=== PATIENT | male | born 1930 | race Caucasian/White ===

== ENCOUNTER 2016-09-18 12:45 | Emergency (ER) | payer OTHER ==
[~2016-09-18] VITALS: Ht 177.8 cm; Wt 76.2 kg
[~2016-09-18 12:45] MED LIST: AMLODIPINE BESYL5 M1 PO; ASPIRIN EC81 M1 PO; FOLIC ACID1 M1 PO; LIPITOR40 M1 PO; MULTI-DAY VITA1 EACH PO; NEURONTIN100 M1 PO; PRANDIN1 M1 PO; TOPROL XL25 M1 PO
--- NOTE | 2016-09-18 13:10 | ED GENERAL ADULT ---
History of Present Illness General Chief Complaint: General Adult Stated Complaint: PT SIB DR PEGUERO, VOMITING, HIGH BL SUGAR, Source: patient Exam Limitations: no limitations Vital Signs & Intake/Output Vital Signs & Intake/Output Vital Signs Date Time Temp Pulse Resp B/P Pulse O2 O2 Flow FiO2 Ox Delivery Rate 09/19 1349 82 16 165/74 94 Room Air 09/19 1136 98.0 87 16 153/71 94 Room Air 09/19 1040 Room Air 09/19 0930 98.1 90 20 128/60 /18 0916 98.1 90 20 128/60 96 Room Air 09/19 0715 98.0 88 20 128/61 96 Room Air 09/18 2303 97.9 88 20 153/67 / 2303 97.9 88 20 153/67 / 2303 97.9 105 18 165/76 94 Room Air 09/18 1813 97.9 88 20 153/67 95 Room Air 09/18 1532 97.2 85 18 149/68 95 Room Air 09/18 1453 98 Room Air ED Intake and Output 09/19 0000 09/18 1200 Intake Total 1000 Output Total Balance 1000 Intake, IV 1000 Patient 168 lb Weight Allergies Coded Allergies: atenolol (UNKNOWN 10/11/15) carrot (UNKNOWN 10/11/15) celery (UNKNOWN 10/11/15) niacin (UNKNOWN 10/11/15) oxycodone (UNKNOWN 10/11/15) Uncoded Allergies: COLOR ADDITIVE (UNKNOWN REACTION TO DYE 10/15/15) Triage Note: 85 Y/O MALE C/O N/V THIS AM AROUND 1100. PT STATES HE HAS BEEN HAVING R HIP PAIN X 2 WEEKS; HAD AN MRI AND WAS DUE TO GO FOR RESULTS TODAY. STATES HE TOOK TYLENOL WITH CODEINE THIS AM AND THEN BEGAN VOMITING SHORTLY AFTER. PT STATES HIS ABDOMEN HURT THIS AM BUT "FEELS BETTER" SINCE VOMITING. PT STATES HIS BLOOD SUGAR WAS 247 THIS AM. AFEBRILE. Triage Nurses Notes Reviewed? yes Onset: Gradual Duration: hour(s): (4) Timing: remote history Injury Environment: home Severity: moderate Severity Numbers: 6 No Modifying Factors: none HPI: Patient is an 85-year-old male with history of nausea, vomiting, elevated blood glucose level since this morning. Patient also reporting generalized abdominal discomfort. He reports that he vomited 2 or 3 times, he reports that it is bilious. No blood. Denies any fevers or chills. He reports that he feels improved at this time but his stomach feels "queasy". Denies any lower extremity edema. No chest pain palpitations or shortness of breath. Denies taking anything at home to help her symptoms. Per patient has been constipated over the last several days and she had to manual disimpact him this morning. He reports that helped and he was able to move his bowels. (OLIVIER JEFFERSON) Reconcile Medications Amlodipine Besylate 5 MG TABLET 1 TAB PO DAILY BP (Reported) Aspirin (Ecotrin*) 81 MG TABLET.DR 1 TAB PO DAILY HEART HEALTH (Reported) Atorvastatin Calcium (Lipitor) 40 MG TABLET 1 TAB PO DAILY CHOLESTEROL ( Reported) Cyanocobalamin (Vitamin B-12) 1,000 MCG TABLET 1 TAB PO DAILY HEALTH SUPPLEMENT (Reported) Folic Acid 1 MG TABLET 1 TAB PO DAILY SUPPLEMENT (Reported) Gabapentin (Neurontin) 100 MG CAPSULE 2 CAP PO DAILY NERVE PAIN (Reported) Hydrochlorothiazide 25 MG TABLET 1 TAB PO DAILY HIGH BLOOD PRESSURE (Reported ) Hyoscyamine (Levsin) 0.125 MG TABLET 1 TAB PO Q4 PRN ABDOMINAL SPASMS Metoprolol Succ XL (Toprol XL) 25 MG TAB 1 TAB PO DAILY BP (Reported) Multivitamin (Multi-Day Vitamins) 1 EACH TABLET 1 TAB PO DAILY SUPPLEMENT ( Reported) Ondansetron (Zofran Odt) 4 MG TAB.RAPDIS 1 TAB SL TID PRN NAUSEA Repaglinide (Prandin) 1 MG TABLET 1 TAB PO TID DIABETES (Reported) Tamsulosin HCl (Flomax) 0.4 MG CAP.ER.24H 1 CAP PO DAILY HEALTH SUPPLEMENT ( Reported) (MICHAEL ORTZE,CHAD) Past History Travel History Traveled to [place] past 21 day No Medical History Any Pertinent Medical History? see below for history Neurological: NONE EENT: NONE Cardiovascular: CAD Respiratory: NONE Gastrointestinal: NONE Hepatic: NONE Renal: PROSTATE Musculoskeletal: NONE Psychiatric: NONE Endocrine: diabetes Blood Disorders: NONE Cancer(s): NONE HOGSHEAD HAND/Reproductive: NONE Surgical History Surgical History: cholecystectomy, aortic valve replacement Psychosocial History Who do you live with Spouse What is your primary language Divehi Tobacco Use: Quit >30 days ago Family History Hx Contributory? No (OLIVIER JEFFERSON) Review of Systems Review of Systems Constitutional: Reports: malaise. Comments Review of systems: See HPI, All other systems negative. Constitutional, no chills fever or weight loss HEENT: No visual changes no sore throat no congestion Cardiovascular: No chest pain ,palpitation , orthopnea or ankle swelling Skin, no jaundice no rashes Respiratory: No dyspnea cough sputum or hemoptysis GI: No diarrhea : No dysuria No hematuria Muscle skeletal: no back pain, no neck pain, Neurologic: No numbness no confusion, no headaches Psych: No stress anxiety or depression,. Heme/endocrine: No bruising no bleeding no polyuria or polydipsia Immunology: No splenectomy or history of AIDS (OLIVIER JEFFERSON) Physical Exam Physical Exam General Appearance: well developed/nourished, no apparent distress, alert, awake , comfortable Comments: Well-developed well-nourished person in no acute distress HEENT: Pupils equally round and reactive to light and accommodation. Nose is atraumatic. External auditory canal and Tympanic membranes clear. Pharynx normal. No swelling or edema. Dry oral mucosa. Neck: Supple, no lymphadenopathy, normal range of motion without pain or tenderness Back: Nontender, no CVA tenderness. Cardiovascular: Regular rate and rhythms no murmurs rubs or gallops, normal JVP Respiratory: Chest nontender. No respiratory distress.breath sounds clear to auscultation bilaterally Abdomen: Soft, slightly distended, tenderness to palpation in the periumbilical region, no appreciable organomegaly. Normal bowel sounds. No ascites Extremity: No edema, no calf tenderness to palpation, normal and equal pulses. Neuro: Alert oriented x3, motor sensory normal Skin: No appreciable rash on exposed skin, skin is warm and dry. Psych: Mood and affect is normal, memory and judgment is normal. Core Measures ACS in differential dx? Yes CVA/TIA Diagnosis: No Severe Sepsis Present: No Septic Shock Present: No (OLIVIER JEFFERSON) Progress Differential Diagnoses I considered the following diagnoses in my evaluation of the patient: Dehydration, electrolyte abnormality, DKA, hyperglycemia, gastritis, constipation, SBO Plan of Care: Orders Procedure Date/time Status FingerStick- Glucose 09/19 1020 Active CBC WITHOUT DIFFERENTIAL 09/19 0813 Complete Theraputic Activities 15 Min 09/19 UNK Complete MOBILITY D/C STATUS 09/19 UNK Complete MOBILITY GOAL STATUS 09/19 UNK Complete MOBILITY CURRENT STATUS 09/19 UNK Complete PT EVAL LOW COMPLEX 20 MIN 09/19 UNK Complete Heart Healthy Diet 09/18 D Active PT Evaluate & Treat 09/18 2012 Active CASE MANAGEMENT CONSULT 09/18 2012 Active Add-on Test (ER Only) 09/18 1702 Active EKG 09/18 1532 Active TROPONIN LEVEL 09/18 1428 Complete Current Medications Sig/Rakesh Start time Last Medication Dose Stop Time Status Admin Non-Formulary 0 ONCE ONE 09/18 2029 CAN Medication 09/18 2030 (NON FORMULARY) Laboratory Tests 09/19/16 0821: CBC w Diff NO MAN DIFF REQ, RBC 3.77 L, MCV 95.5 H, MCH 32.5 H, RDW 12.5, MPV 9.9, Gran % 77.5 H, Lymphocytes % 12.1 L, Monocytes % 9.4 H, Eosinophils % 0.8, Basophils % 0.2, Absolute Granulocytes 7.8 H, Absolute Lymphocytes 1.2, Absolute Monocytes 0.9 H, Absolute Eosinophils 0.1, Absolute Basophils 0, PUBS MCHC 34.0 09/18/16 1525: Urine Color YEL, Urine Clarity CLEAR, Urine pH 6.0, Ur Specific P[place]ar 1.015, Urine Protein TRACE H, Urine Ketones NEG, Urine Nitrite NEG, Urine Bilirubin NEG, Urine Urobilinogen 0.2, Ur Leukocyte Esterase NEG, Ur Microscopic SEDIMENT EXAMINED, Urine RBC RARE, Urine WBC RARE, Ur Epithelial Cells FEW, Hyaline Casts RARE H, Urine Hemoglobin NEG, Urine Glucose 100 H Microbiology 09/18 1710 NASOPHARYN: Influenza Virus A & B Rapid Smear - CAN Cancelled: Cancelled via OE: Error Diagnostic Imaging: Viewed by Me: Radiology Read, CT Scan. Discussed w/RAD: Radiology Read, CT Scan. Radiology Impression: PATIENT: MERVIN SANCHEZ PRESENT AGE: 85 PATIENT ACCOUNT NO: [id number] : 29 LOCATION: [facility] ORDERING PHYSICIAN: OLIVIER RAGSDALE SERVICE DATE: 09/18/16-1324 EXAM TYPE: RAD - [id number] VIEWS EXAMINATION: XR ABDOMEN MULTIPLE VIEWS CLINICAL INDICATION: Nausea and vomiting. Constipation. COMPARISON: CT abdomen pelvis . TECHNIQUE: Upright and supine abdomen. FINDINGS: Nonobstructive bowel pattern. No dilated bowel loops. Moderate to large volume of stool throughout the colon. The volume of stool similar to the CAT scan exam of 07/31/2016. No radiopaque urinary calculi. Calculi seen in the right kidney on the CAT scan of 07/31/2016 is not apparent on plain film but there is stool in the colon obscuring the renal region. Orthopedic fusion hardware L4-L5. Multilevel degenerative spondylosis of the spine. Degenerative joint narrowing of the hip joints bilateral. IMPRESSION: No acute change of the abdomen. Moderate to large- volume of stool though throughout the colon with a nonobstructive bowel pattern, PATIENT: MERVIN SANCHEZ PRESENT AGE: 85 PATIENT ACCOUNT NO: [id number] : 29 LOCATION: [facility] ORDERING PHYSICIAN: OLIVIER RAGSDALE SERVICE DATE: 09/18/16 EXAM TYPE: CAT - CT ABD & PELVIS W/O IV CONTRAS EXAMINATION: CT ABDOMEN AND PELVIS WITHOUT CONTRAST CLINICAL INFORMATION: Abdominal pain. Nausea and vomiting. COMPARISON: CT scan abdomen and pelvis 07/31/2016. TECHNIQUE: Multidetector volumetric imaging was performed from the superior aspect of the liver through the pubic symphysis. Sagittal and coronal reformatted images were obtained on the technologist's workstation. DLP: 389.81 mGy-cm FINDINGS: LUNG BASES: Status post median sternotomy. There is calcification of the coronary arteries. There is aortic valve replacement. Mitral valve annular calcifications present. Lung bases are clear. Right diaphragm elevated above the left. LIVER, GALLBLADDER, AND BILIARY TREE: There is pneumobilia. Gallbladder is absent. This is unchanged since prior study. No focal liver lesion. PANCREAS: Unremarkable. SPLEEN: Unremarkable. ADRENAL GLANDS : Unremarkable. KIDNEYS AND URETERS: Left kidney inferiorly positioned. There are nonobstructive stones in the right kidney. Near the pole there are 2 adjacent stones. These measure approximately 5 mm and 3 mm. There is a 4 x 3 mm stone in the midpole. No stone in the left kidney. There is no ureteral calculus. There is no hydronephrosis. BLADDER: Unremarkable. GASTROINTESTINAL TRACT: There is marked diverticulosis of the sigmoid and descending colon with scattered diverticula in the right colon. No diverticulitis. No bowel wall thickening or edema. Moderate to large volume of stool in the colon. No bowel obstruction. The appendix is normal. The small bowel loops are unremarkable. ABDOMINAL WALL: Large left-sided fat-containing inguinal hernia measuring 7.8 cm transverse by 4.5 cm AP. There is a small right fat-containing inguinal hernia measuring 2.6 x 1.9 cm. LYMPH NODES: Normal. VASCULAR: Atherosclerotic vascular wall calcifications of aorta and iliac arteries. No aneurysm. PELVIC VISCERA: Prostate measures 4.6 cm transverse. OSSEOUS STRUCTURES: Transpedicular screws L4-L5. Vacuum disc phenomena L5-S1. Degenerative lipping at the anterior endplates of thoracic and lumbar vertebrae. IMPRESSION: 1. No acute abnormality CT scan abdomen and pelvis. 2. Diverticulosis of colon without diverticulitis. No acute change of bowel. 3. Pneumobilia. Status post cholecystectomy. 4. No change in nonobstructive right renal calculi. No hydronephrosis. 5. Bilateral fat-containing inguinal hernias, large on the left. Initial ED EKG: NORMAL SINUS RHYTHM AT 90 BPM, PAC Prior EKG: unchanged Hand-Off Endorsed To: LEONOR ORTEZ,BHARTI Hamm Endorsed Time: 2299 Pending: other Comments: 09/18/2016 2:12:28 PM on arrival patient no acute distress, vitals within normal range. Patient does every evertors small bowel pain on exam with nausea and vomiting no diarrhea. Recent history of constipation. Need to exclude SBO. Patient hydrated with fluids as he has a dry oral mucosa. Patient reports that he is not nauseous at this time. Does not want anything for pain at this time. 09/18/2016 5:49:17 PM patient really improved after IV hydration. Patient eating toast and Jell-O without difficulty. No nausea or vomiting. There are informed of all lab work results and imaging study results. Likely constipation. Also likely viral syndrome. Still pending troponin. EKG shows no acute changes. 09/18/2016 6:11:56 PM ambulate patient, having difficulty with ambulation secondary to hip pain has been going on for the past several weeks. Patient will be a holdover in the emergency department for physical therapy evaluation in the morning. Family aware of this and compliant. Patient may need rehabilitation. Case management involved. 09/18/2016 10:53:30 PM patient will be signed out to Dr. Jolly pending consultation with physical therapy in the morning. Patient placed in hospital bed. Given nighttime medications already. (OLIVIER JEFFERSON) Hand-Off Endorsed To: LEONA DIAZ MD Endorsed Time: 0700 Pending: other (CASE MANAGEMENT/PT CONSULT) (LEONOR ORTEZ,BHARTI Hamm) Differential Diagnoses I considered the following diagnoses in my evaluation of the patient: Comments: 09/19/16 10:15am pt case d/w dr yanez who reviewed pt mri: mild arthritis, troch bursitis. hx of gen spine disease per dr yanez. Pt transferred to rehabilitation facility. 09/19/2016 2:47:30 PM I have updated Mervin's . (LEONA DIAZ MD) Departure Departure Condition: Stable Clinical Impression Primary Impression: Nausea and vomiting Qualifiers: Vomiting type: unspecified Vomiting Intractability: non-intractable Qualified Code: R11.2 - Nausea with vomiting, unspecified Secondary Impressions: Abdominal pain Qualifiers: Abdominal location: periumbilical Qualified Code: R10.33 - Periumbilical pain Referrals: DRAGAN PEGUERO MD (PCP/Family) Additional Instructions: Follow-up with your primary care physician call to make an appointment. Increase fluids. Take Zofran as prescribed for nausea. Return for worsening symptoms or concerns. Use ozzb-dlt-rodycdt stool softeners to help with constipation. Prescription for Zofran and Levsin to help with nausea and abdominal discomfort were sent to [facility]. YOU can pick them up tomorrow. Departure Forms: Customer Survey General Discharge Information Prescriptions: Current Visit Scripts Ondansetron (Zofran Odt) 1 TAB SL TID PRN NAUSEA #10 TAB Hyoscyamine (Levsin) 1 TAB PO Q4 PRN ABDOMINAL SPASMS #10 TAB (OLIVIER JEFFERSON) PA/ESL INSTRUCTOR Co-Sign Statement Statement: ED Attending supervision documentation- [X] I saw and evaluated the patient. I have also reviewed all the pertinent lab results and diagnostic results. I agree with the findings and the plan of care as documented in the PA's/ESL INSTRUCTOR's documentation. [X] I have reviewed the ED Record and agree with the PA's/ESL INSTRUCTOR's documentation. [] Additions or exceptions (if any) to the PAs/ESL INSTRUCTOR's note and plan are summarized below: [] (MICHAEL MD,CHAD) Departure Disposition: ACUTE REHAB FACILITY (LEONA DIAZ MD) Critical Care Note Critical Care Note Critical Care Time: non-applicable (OLIVIER JEFFERSON) Critical Care Note Critical Care Time: 30-74 min (LEONA DIAZ MD) Statement: ED Attending supervision documentation- [X] I saw and evaluated the patient. I have also reviewed all the pertinent lab results and diagnostic results. I agree with the findings and the plan of care as documented in the PA's/ESL INSTRUCTOR's documentation. [X] I have reviewed the ED Record and agree with the PA's/ESL INSTRUCTOR's documentation. [] Additions or exceptions (if any) to the PAs/ESL INSTRUCTOR's note and plan are summarized below: [] (CHAD RODRIGUEZ MD) Critical Care Note Critical Care Note Critical Care Time: non-applicable (OLIVIER JEFFERSON)
[2016-09-18 14:38] LABS: ABSOLUTE BASOPHIL COUNT 0 /CUMM (0.0-0.2); ABSOLUTE EOSINOPHIL COUNT 0 /CUMM (0.0-0.7); ABSOLUTE GRANULOCYTE CT 14.8 /CUMM (1.4-6.5); ABSOLUTE LYMPH COUNT 0.9 /CUMM (1.2-3.4); ABSOLUTE MONOCYTE COUNT 1.3 /CUMM (0.10-0.60); BASOPHIL % 0.1 % (0.0-2.0); EOSINOPHIL % 0.3 % (0-5); GRANULOCYTE % 86.3 % (42.2-75.2); HEMATOCRIT 42.9 % (42-52); MEAN CORPUSCULAR HGB 32.8 PG (27.0-31.0); MEAN CORPUSCULAR HGB CONC 34.4 G/DL (33.0-37.0); MEAN CORPUSCULAR VOLUME 95.3 FL (80.0-94.0); MEAN PLATELET VOLUME 9.3 FL (7.4-10.4); PLATELET COUNT 178 /CUMM (130-400); RBC DISTRIBUTION WIDTH 12.3 % (11.5-14.5); RED BLOOD CELL CT 4.49 /CUMM (4.70-6.10); WHITE BLOOD CELL COUNT 17.2 /CUMM (4.8-10.8)
[2016-09-18] MEDS ORDERED: HYDROCHLOROTHIA25 M1 PO (15:16)
[2016-09-18] MEDS ORDERED: VITAMIN B-121000 MC3 PO (15:17)
[2016-09-18] MEDS ORDERED: FLOMAX0.4 M1 PO (15:19)
--- NOTE | 2016-09-18 15:30 | RADIOLOGY REPORT ---
EXAMINATION: XR ABDOMEN MULTIPLE VIEWS CLINICAL INDICATION: Nausea and vomiting. Constipation. COMPARISON: CT abdomen pelvis 07/31/2016. TECHNIQUE: Upright and supine abdomen. FINDINGS: Nonobstructive bowel pattern. No dilated bowel loops. Moderate to large volume of stool throughout the colon. The volume of stool similar to the CAT scan exam of 07/31/2016. No radiopaque urinary calculi. Calculi seen in the right kidney on the CAT scan of 07/31/2016 is not apparent on plain film but there is stool in the colon obscuring the renal region. Orthopedic fusion hardware L4-L5. Multilevel degenerative spondylosis of the spine. Degenerative joint narrowing of the hip joints bilateral. IMPRESSION: No acute change of the abdomen. Moderate to large-volume of stool though throughout the colon with a nonobstructive bowel pattern
--- NOTE | 2016-09-18 16:49 | CT SCAN REPORT ---
EXAMINATION: CT ABDOMEN AND PELVIS WITHOUT CONTRAST CLINICAL INFORMATION: Abdominal pain. Nausea and vomiting. COMPARISON: CT scan abdomen and pelvis 07/31/2016. TECHNIQUE: Multidetector volumetric imaging was performed from the superior aspect of the liver through the pubic symphysis. Sagittal and coronal reformatted images were obtained on the technologist's workstation. DLP: 389.81 mGy-cm FINDINGS: LUNG BASES: Status post median sternotomy. There is calcification of the coronary arteries. There is aortic valve replacement. Mitral valve annular calcifications present. Lung bases are clear. Right diaphragm elevated above the left. LIVER, GALLBLADDER, AND BILIARY TREE: There is pneumobilia. Gallbladder is absent. This is unchanged since prior study. No focal liver lesion. PANCREAS: Unremarkable. SPLEEN: Unremarkable. ADRENAL GLANDS: Unremarkable. KIDNEYS AND URETERS: Left kidney inferiorly positioned. There are nonobstructive stones in the right kidney. Near the pole there are 2 adjacent stones. These measure approximately 5 mm and 3 mm. There is a 4 x 3 mm stone in the midpole. No stone in the left kidney. There is no ureteral calculus. There is no hydronephrosis. BLADDER: Unremarkable. GASTROINTESTINAL TRACT: There is marked diverticulosis of the sigmoid and descending colon with scattered diverticula in the right colon. No diverticulitis. No bowel wall thickening or edema. Moderate to large volume of stool in the colon. No bowel obstruction. The appendix is normal. The small bowel loops are unremarkable. ABDOMINAL WALL: Large left-sided fat-containing inguinal hernia measuring 7.8 cm transverse by 4.5 cm AP. There is a small right fat-containing inguinal hernia measuring 2.6 x 1.9 cm. LYMPH NODES: Normal. VASCULAR: Atherosclerotic vascular wall calcifications of aorta and iliac arteries. No aneurysm. PELVIC VISCERA: Prostate measures 4.6 cm transverse. OSSEOUS STRUCTURES: Transpedicular screws L4-L5. Vacuum disc phenomena L5-S1. Degenerative lipping at the anterior endplates of thoracic and lumbar vertebrae. IMPRESSION: 1. No acute abnormality CT scan abdomen and pelvis. 2. Diverticulosis of colon without diverticulitis. No acute change of bowel. 3. Pneumobilia. Status post cholecystectomy. 4. No change in nonobstructive right renal calculi. No hydronephrosis. 5. Bilateral fat-containing inguinal hernias, large on the left.
[2016-09-18] MEDS ORDERED: LEVSIN0.125 M1 PO (18:16)
[2016-09-18] MEDS ORDERED: ZOFRAN ODT4 M1 SL (18:16)
[2016-09-19 08:42] LABS: ABSOLUTE BASOPHIL COUNT 0 /CUMM (0.0-0.2); ABSOLUTE EOSINOPHIL COUNT 0.1 /CUMM (0.0-0.7); ABSOLUTE GRANULOCYTE CT 7.8 /CUMM (1.4-6.5); ABSOLUTE LYMPH COUNT 1.2 /CUMM (1.2-3.4); EOSINOPHIL % 0.8 % (0-5); WHITE BLOOD CELL COUNT 10.1 /CUMM (4.8-10.8)
[2016-09-19 08:51] LABS: ABSOLUTE MONOCYTE COUNT 0.9 /CUMM (0.10-0.60); BASOPHIL % 0.2 % (0.0-2.0); GRANULOCYTE % 77.5 % (42.2-75.2); MEAN CORPUSCULAR HGB 32.5 PG (27.0-31.0); MEAN CORPUSCULAR VOLUME 95.5 FL (80.0-94.0); MEAN PLATELET VOLUME 9.9 FL (7.4-10.4); PLATELET COUNT 154 /CUMM (130-400); RBC DISTRIBUTION WIDTH 12.5 % (11.5-14.5); RED BLOOD CELL CT 3.77 /CUMM (4.70-6.10)
[2016-09-19 13:49] VITALS: BP 165/74
[2017-01-13] MEDS ORDERED: METOPROLOL TART25 M1 PO (15:27)
== END 2016-09-19 14:41 ==
LOC: ERH 12:45
PROVIDERS: Emergency Medicine; Physician Assistant
DX: R11.2 Nausea with vomiting, unspecified (principal); R10.84 Generalized abdominal pain
CPT/HCPCS: 74020; 74176; 81001; 87804; 87804-59; 93005; 93010; 96361; 96374; 97161-GP; 97530-GP; G8978-GP; G8979-GP; G8980-GP; J2405; J3490

== ENCOUNTER → 2017-01-18 | Day surgery (SDC) | payer OTHER ==
[~2017-01-18] VITALS: Ht 172.7 cm; Wt 75.3 kg
[~2017-01-18] MED LIST changes: +FLOMAX0.4 M1 PO; +HYDROCHLOROTHIA25 M1 PO; +LEVSIN0.125 M1 PO; +METOPROLOL TART25 M1 PO; +VITAMIN B-121000 MC3 PO; +ZOFRAN ODT4 M1 SL
--- NOTE | 2017-01-18 10:27 | Operative Report ---
Operative/Inv Procedure Report Surgery Date: 01/18/17 Name of Procedure: Cystoscopy and TURBT Pre-Operative Diagnosis: recurrent bladder tumor Post-Operative Diagnosis: same Estimated Blood Loss: scant Surgeon/Machine Stitcher: Carolyn ORTEZ,PAULA Yip Anesthesia: laryngeal mask airway Drains: 20 fr 2-way loving Specimens: bladder tumor chips Complications: none Condition: stable Operative Indication: This patient has a history of superficial bladder tumor. On routine follow-up cystoscopy was noted to have multiple small superficial bladder tumors. He has not received adjuvant vesicle chemotherapy in the past. He is now to undergo repeat transurethral resection of bladder tumors Operative/Procedure Note Note: The patient was taken to the operating room and identified. He is placed in the supine position on the operating table. Timeout was executed appropriately with the patient awake. Gen. anesthesia was induced via LMA. The patient was then placed in dorsal lithotomy position and a bimanual rectal exam revealed a mildly enlarged prostate with on other masses. He was then prepped and draped in usual fashion for cystoscopy. S surgical pause was executed appropriately. The 22 [place] cystoscope sheath was placed into the bladder under direct vision using the 30 lens. Anterior urethra was normal. The prostatic urethra appeared nonobstructing. Upon entering the bladder there was noted to be significantly trabeculated. There were multiple small recurrent bladder tumors which were all superficial appearing. The right and left ureteral orifices were normal in location and appearance. At this point the bladder was left full and the cystoscope removed. An attempt to place the resectoscope was unsuccessful due to inability to get it beyond the urethral meatus. Therefore the urethral meatus and fossa navicularis was dilated with sounds to 28 [place]. The 26 [place] resectoscope sheath was then placed into the bladder using the obturator. The working element was inserted. All visible bladder tumor was either resected or fulgurated. At this point no visible bladder tumor remained. The Teodora evacuator was used to remove the bladder tumor chips from the bladder. The base of each area of resection was cauterized. No significant bleeding was noted at this time other than some mild oozing from the prostatic urethra. The bladder was left full and the cystoscope removed. A 20 [place] two-way Loving catheter was inserted and connected to a leg bag. Patient tolerated the procedure wellcompletion was taken recovery room in stable condition.
== END ==
LOC: STS 01-11 07:00
DX: C67.8 Malignant neoplasm of overlapping sites of bladder (principal); I10 Essential (primary) hypertension; E11.9 Type 2 diabetes mellitus without complications; Z79.82 Long term (current) use of aspirin; Z85.51 Personal history of malignant neoplasm of bladder; Z85.828 Personal history of other malignant neoplasm of skin
CPT/HCPCS: J0131; J0690; J1100; J2405